=== PATIENT | female | born 1960 | race Hispanic/Latino ===

== ENCOUNTER → 2019-01-19 | Outpatient (CLI) | payer OTHER ==
--- NOTE | 2019-01-19 14:56 | Diagnostic Imaging Report ---
Barium swallow COPIER AND PRINTER FIELD TECHNICIAN(S): Yaquelin Martinez MD Comparison: None. Procedure: Barium swallow and upper GI fluoroscopic images obtained with air and barium contrast in a variety of positions. Fluoroscopy Time: 1.0 minute Total Dose: 22.7mGy DISCUSSION: MEDICAL RECORDS RECEPTIONIST: The bowel gas pattern is non-obstructive. SWALLOW: Grossly unremarkable. ESOPHAGUS: Mucosa is unremarkable. Predominately primary contractions. Moderate unprovoked gastroesophageal reflux of contrast. STOMACH: Unremarkable mucosal pattern. SMALL BOWEL: Bulb and sweep are normal. Duodenal-jejunal junction is in the normal expected position. Small bowel loops are normal in caliber and distribution. IMPRESSION: Moderate unprovoked gastroesophageal reflux. Otherwise, unremarkable barium swallow. Signed by: Yaquelin Martinez MD on 01/19/2019 2:52 PM
== END ==
LOC: DX 10:56
PROVIDERS: ATTEND Internal Medicine Gastroenterology
DX: R13.10 Dysphagia, unspecified (principal)
CPT/HCPCS: 74220